=== PATIENT | male | born 1975 | race African-American/Black ===

== ENCOUNTER 2022-05-13 15:50 | Inpatient (IN) | payer MEDICARE, MEDICAID, SELFPAY ==
--- NOTE | 2022-05-13 | ECG_ITS ---
Measurements Intervals [place] Rate: 98 P: 66 HI: 176 QRS: 53 QRSD: 77 T: 57 QT: 337 QTc: 430 Interpretive Statements SINUS RHYTHM EARLY REPOLARIZATION [ST ELEVATION WITH NORMALLY INFLECTED T WAVE] NO PREVIOUS ECG AVAILABLE FOR COMPARISON Electronically Signed On 05-14-2022 17:47:27 ELECTROCARDIOGRAPHIC TECHNICIAN by Brigitte Monzon M.D.
--- NOTE | ~2022-05-13 | XR_ITS ---
XR chest 1V portable DATE: 05/13/2022 16:58 INDICATION: Transient alteration of awareness TECHNIQUE: Portable upright AP chest on 05/13/2022 at 1656 hours COMPARISON: None FINDINGS: Normal heart size. No hilar or mediastinal enlargement. No pulmonary infiltrate or consolid ation, pleural effusion or pulmonary vascular congestion or pneumothorax. IMPRESSION: No active cardiopulmonary disease Reviewed, dictated and finalized at location [facility] [employer]
--- NOTE | ~2022-05-13 | CT_ITS ---
Non-contrast Head CT History: Altered mental status Technique: Axial non-contrast imaging of the brain was performed. Dose reduction technique was used on this scan by utilizing automated exposure control and iterative reconstruction technique. The dose -length product (DLP) was 605.33 mGy-cm. Findings: There is no evidence of intracranial hemorrhage, mass lesion, or acute infarct. Brain par enchyma appears normal. The ventricles and subarachnoid spaces are normal in size. The calvarium ap pears normal. The visualized paranasal sinuses and mastoid air cells are clear. Impression: No significant abnormality seen. Reviewed, dictated and finalized at location . ER ON Impression: No significant abnormality seen.
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
[2022-05-13 15:59] VITALS: PULSE 100; RESP 14; TEMP 36.9; O2SAT 98
[2022-05-13] MEDS: diphenhydrAMINE HCl INJ 50 MG/ML VIAL 25 MG IM (16:00)
[2022-05-13] MEDS: HALOPERIDOL LACTATE 5 MG/ML VIAL IM (16:01)
[2022-05-13] MEDS: LORazepam INJ (*CRX) 2 MG/ML VIAL IM (16:01)
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
[2022-05-13 17:14] VITALS: BP 105/79; PULSE 74; RESP 12; TEMP 36.9; O2SAT 98
[2022-05-13 17:15] LABS: Basophils Absolute Auto 0.1 K/mm3 (0.0-0.1); Basophils Percent Auto 0.6 % (0.2-1.2); Eosinophils Percent Auto 0.5 % (0-4.4); Hematocrit 38.5 % (42.0-52.0); Hemoglobin 12.3 g/dL (14.0-18.0); Immature Granulocyte Absolute 0.03 K/mm3 (0.00-0.031); Immature Granulocyte Percent A 0.3 % (0-0.5); Lymphocytes Absolute Auto 1.38 K/mm3 (0.9-3.2); Lymphocytes Percent Auto 15.8 % (18.3-44.2); Mean Corpuscular HGB Conc 31.9 g/dl (32-36); Mean Corpuscular Hemoglobin 27.5 pg (26-34); Mean Corpuscular Volume 86.1 fl (80-100); Mean Platelet Volume 8.9 fl (7.4-10.4); Monocytes Absolute Auto 0.8 K/mm3 (0.1-0.6); Monocytes Percent Auto 8.7 % (2.6-8.5); Neutrophils Absolute Auto 6.5 K/mm3 (1.3-6.7); Neutrophils Percent Auto 74.1 % (45.5-73.1); Platelet Count Result 366 k/mm3 (150-375); Red Blood Count 4.47 M/mm3 (4.6-6.20); Red Cell Distribution Width 13.8 % (11.5-14.5); White Blood Count 8.7 K/mm3 (4.5-10.0)
[2022-05-13 17:25] LABS: Acetaminophen < 10 ug/mL (10-30); Ethanol < 10 mg/dL (<10); Salicylate < 1.0 mg/dL (2-20)
[2022-05-13 17:33] LABS: Alanine Aminotransferase 32 U/L (6-50); Albumin Level 4.4 g/dL (3.5-5.1); Alkaline Phosphatase 64 U/L (38-126); Anion Gap 7 mmol/L (8-16); Aspartate Amino Transferase 61 U/L (17-59); Bilirubin,Total 0.9 mg/dL (0.2-1.3); Blood Urea Nitrogen 20 mg/dL (9-20); Calcium 8.8 mg/dL (8.4-10.2); Carbon Dioxide 25 mmol/L (22-30); Chloride 107 mmol/L (98-107); Estimated CRCL calculation 55 ml/min; Estimated Glomerular Filt Rate > 60; Glucose 76 mg/dL (65-110); Potassium 3.6 mmol/L (3.4-5.0); Sodium 139 mmol/L (137-145)
[2022-05-13 17:53] LABS: Influenza A QL RT-PCR Negative (Negative); Influenza B QL RT-PCR Negative (Negative); RSV RNA, RT-PCR Negative (Negative); SARS-CoV-2 RNA PCR Negative
[2022-05-13 17:54] LABS: Add Urine Microscopic? YES; Appearance Urine Clear (Clear); Bilirubin Urine 1+ (Negative); Blood Urine 1+ (Negative); Color Urine Yellow (Yellow); Glucose Urine UA Negative (Negative); Ketones Urine 2+ mg/dL (Negative); Leukocyte Esterase Ur Negative LEU/UL (Negative); Nitrate Urine Negative (Negative); Protein Urine 1+ mg/dL (Negative); Specific Grav Ur >= 1.030 (1.001-1.035); Urobilinogen Urine 0.2 mg/dL (<2.0); pH Urine 5.5 (5.0-9.0)
[2022-05-13 18:01] LABS: Mucus Urine Few /lpf; RBC Urine 21-50 /hpf (0-2); Squamous Epithelial Cell Urine Rare /hpf (Few); WBC Urine 0-3 /hpf
[2022-05-13 18:18] LABS: Amphetamine Screen Urine Negative (Negative); Barbiturate Screen Urine Negative (Negative); Benzodiazepines Screen Urine Negative (Negative); Cannabinoid Screen Urine Positive (Negative); Cocaine Screen Urine Negative (Negative); Methadone Screen Urine Negative (Negative); Opiate Screen Urine Negative (Negative); Phencyclidine Screen Urine Negative (Negative)
[2022-05-14] MEDS: HALOPERIDOL LACTATE 5 MG/ML VIAL IM (05:34)
--- NOTE | 2022-05-14 05:39 | PC.NURSE ---
THIS RN LEFT A VM WITH [facility] AT THIS TIME. [phone]. PT WAS SUPPOSEDLY D/C FROM [facility] IN SEPTEMBER 2021 AND SENT TO THAT [facility] AT THAT TIME. ANY INFORMATION THAT WE WOULD BE ABLE TO OBTAIN WOULD BE HELPFUL.
--- NOTE | 2022-05-14 05:57 | PC.NURSE ---
Pt was [facility] voluntary psychiatric admission uniles Sinha of [facility] in [facility].
[2022-05-14 06:00] LABS: Creatine Kinase 2416 U/L (55-170)
[2022-05-14 06:27] LABS: Troponin I < 0.012 ng/mL (0.000-0.034)
--- NOTE | 2022-05-14 07:07 | PC.NURSE ---
reported elevated CK reported. Pt will be admitted.
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
[2022-05-14] MEDS: LACTATED RINGERS 1,000 ML 999 ML IV CONT ×2 (08:58)
--- NOTE | 2022-05-14 09:00 | PC.NURSE ---
MARTIR BETANCOURT WAS ABLE TO HAVE PT ALLOW HER TO INITIATE THE IVF. PT WAS ENCOURAGED TO KEEP HIS ARM STRAIGHT.
--- NOTE | 2022-05-14 11:47 | PC.NURSE ---
Lunch tray ordered for patient
[2022-05-14 15:40] LABS: Creatine Kinase 2214 U/L (55-170)
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
[2022-05-14] MEDS: SODIUM CHLORIDE 0.9% IV 1,000 ML 250 ML IV CONT ×2 (16:50→18:19)
--- NOTE | 2022-05-14 17:06 | PC.NURSE ---
Patient resting at this time. Breathing even and non labored.
[2022-05-15] VITALS (8 sets, daily range): BP systolic 104–122; BP diastolic 54–76; PULSE 60–74; RESP 14–18; TEMP 36.4–37.3; O2SAT 99–100
--- NOTE | 2022-05-15 00:56 | PC.NURSE ---
Pt has remained asleep. He is easily awakened with verbal stimuli. He has no complaints at this time.
[2022-05-15] MEDS: SODIUM CHLORIDE 0.9% IV 1,000 ML 250 ML IV CONT ×4 (04:42→20:49)
[2022-05-15 04:49] LABS: Basophils Percent Auto 0.4 % (0.2-1.2); Eosinophils Absolute Auto 0.2 K/mm3 (0-0.3); Eosinophils Percent Auto 3.1 % (0-4.4); Hematocrit 36.6 % (42.0-52.0); Hemoglobin 11.6 g/dL (14.0-18.0); Immature Granulocyte Absolute 0.01 K/mm3 (0.00-0.031); Immature Granulocyte Percent A 0.2 % (0-0.5); Lymphocytes Absolute Auto 1.58 K/mm3 (0.9-3.2); Lymphocytes Percent Auto 30.2 % (18.3-44.2); Mean Corpuscular HGB Conc 31.7 g/dl (32-36); Mean Corpuscular Hemoglobin 27.5 pg (26-34); Mean Corpuscular Volume 86.7 fl (80-100); Mean Platelet Volume 8.7 fl (7.4-10.4); Monocytes Absolute Auto 0.6 K/mm3 (0.1-0.6); Monocytes Percent Auto 11.3 % (2.6-8.5); Neutrophils Absolute Auto 2.9 K/mm3 (1.3-6.7); Neutrophils Percent Auto 54.8 % (45.5-73.1); Platelet Count Result 326 k/mm3 (150-375); Red Blood Count 4.22 M/mm3 (4.6-6.20); White Blood Count 5.2 K/mm3 (4.5-10.0)
[2022-05-15 05:00] LABS: Lactic Acid Reflex 0.7 mmol/L (0.7-2.0)
[2022-05-15 05:13] LABS: Alanine Aminotransferase 28 U/L (6-50); Albumin Level 2.9 g/dL (3.5-5.1); Alkaline Phosphatase 46 U/L (38-126); Anion Gap 0 mmol/L (8-16); Aspartate Amino Transferase 55 U/L (17-59); Bilirubin,Total 0.5 mg/dL (0.2-1.3); Blood Urea Nitrogen 9 mg/dL (9-20); Calcium 7.6 mg/dL (8.4-10.2); Carbon Dioxide 27 mmol/L (22-30); Chloride 108 mmol/L (98-107); Creatine Kinase 1409 U/L (55-170); Estimated CRCL calculation 84 ml/min; Estimated Glomerular Filt Rate > 60; Glucose 98 mg/dL (65-110); Magnesium 2.1 mg/dL (1.6-2.3); Potassium 3.6 mmol/L (3.4-5.0); Sodium 135 mmol/L (137-145)
--- NOTE | 2022-05-15 07:25 | PC.NURSE ---
Nurse report given to Jostin BETANCOURT
--- NOTE | 2022-05-15 09:29 | PC.NURSE ---
pt refusing Lovenox at this time pt has been calm and cooperative ate breakfast. pt has been asked for urine, will tell staff when bathroom is needed
[2022-05-15] MEDS: OLANZapine DISPERTAB 5 MG PO (12:11)
[2022-05-15] MEDS: LORazepam INJ (*CRX) 2 MG/ML VIAL 0.5 MG IV PUSH (12:31)
--- NOTE | 2022-05-15 13:48 | PC.NURSE ---
1110- Pt picking off telemetry leads and uncooperative with telemetry monitoring.
--- NOTE | 2022-05-15 16:29 | ADMGEN ---
This patient, Dylan Swan, was admitted to Medical Room 245-. Patient/family oriented to hospital policies and general routines including ID bracelet, bed and alarms, visiting hours, pain management, procedures, bathroom and other care routines, personal items, smoking policy, room service/diet, and visiting hours. Information on how to activate the Rapid Response Team has been discussed. Patient/Family are encouraged to report perceived risks to care and to ask questions if they do not understand what they are told or what they should do.
--- NOTE | 2022-05-15 18:12 | PM.IMPN ---
Progress Note: A&P Assessment and Plan (1) Rhabdomyolysis: Code(s): M62.82 - Rhabdomyolysis Status: Acute Assessment and Plan: -continue with IV fluids. Most likely this is related to his aggressive behavior. Check daily BUN and creatinine. Creatinine is 1.4. -check daily creatinine. -check urine myoglobulin (2) Agitation: Code(s): R45.1 - Restlessness and agitation Status: Acute Assessment and Plan: -I did start the patient on routine oral zyprexa -p.r.n. Benadryl -once he is cleared medically then we will need to have replacement for psychiatric condition. Possible paranoid schizophrenia Subjective Date/time seen: 05/15/22 18:12 Patient is feeling much better now. No muscle cramps. No shortness of breath or chest pain. No abdominal pain, nausea, no vomiting.Mood stable. Review of Systems Review of Systems: All systems reviewed & are unremarkable except as noted in HPI and below Constitutional: Constitutional: Reports as per HPI and Reports no additional constitutional complaints Eyes: Eyes: Reports as per HPI and Reports no additional eye complaints ENT: Reports system reviewed and no additional complaints, except as documented and Reports Normal hearing present Cardiovascular: Cardiovascular: Reports no additional cardiovascular complaints Respiratory: Respiratory: Reports no additional respiratory complaints and Reports no additional respiratory complaints Gastrointestinal: Gastrointestinal: Reports as per HPI and Reports no additional gastrointestinal complaints Musculoskeletal: Musculoskeletal: Reports no additional musculoskeletal complaints Integumentary/Breasts: Skin/Breast: Reports system reviewed and no additional complaints, except as docu and Reports as per HPI Neurologic: Reports system reviewed and no additional complaints, except as documented, Reports as per HPI and Reports Normal hearing present Psychiatric: Psychiatric: Reports no additional psychiatric complaints and Reports as per HPI Endocrine: Endocrine: Reports no additional endocrine complaints Hematologic/Lymphatic: Hematologic/Lymphatic: Reports no additional hematologic/lymphatic complaints Allergic/Immunologic: Allergic/Immunologic: Reports no additional allergic/immunologic complaints Exam Const: General: cooperative, healthy appearing, comfortable, no acute distress, well developed, alert, awake, Physically active, average body habitus and well nourished Nutritional Appearance: average body habitus and well nourished Orientation/consciousness: oriented to person, oriented to place, oriented to time and patient oriented x3 Limitations: behavioral limitations HENMT: Head: normal to inspection, No palpable skull fracture present, normocephalic and atraumatic Ears: hearing grossly normal bilaterally and external ears normal Face/Nose/Sinus: Normal external nose present and Normal nares present Eyes: General: appearance normal, both eyes and all related structures Pupils: Equal, round and reactive pupils present Other: The patient would not open his eyes for me. Neck: Neck: normal visual inspection, full ROM, no lymphadenopathy, trachea midline and supple Thyroid: thyroid normal Carotids: normal carotid upstroke Lymphatic: no lymphadenopathy noted Chest: Chest palpation & inspection: normal inspection of the chest Resp: Effort & Inspection: normal respiratory effort Auscultation: clear to auscultation bilaterally Percussion: percussion normal Cardio: Palpation: normal PMI Rate: regular rate Rhythm: regular rhythm Heart sounds: S1 normal heart sound present and S2 normal heart sound present Peripheral pulses: Peripheral pulses 2+ throughout GI: Inspection: normal to inspection Auscultation: normal bowel sounds Rectal Exam: deferred : General: Yes no CVA tenderness Back/Spine/Pelvis: Back: no CVA tenderness Cervical Spine: cervical ROM normal Thoracic/Lumbar Spine: thoracic a
[2022-05-16] VITALS (10 sets, daily range): BP systolic 116–155; BP diastolic 74–99; PULSE 57–82; RESP 16–18; TEMP 36.2–36.8; O2SAT 98–100
[2022-05-16] MEDS: SODIUM CHLORIDE 0.9% IV 1,000 ML 250 ML IV CONT ×5 (00:50→21:58)
[2022-05-16 06:39] LABS: Creatine Kinase 1015 U/L (55-170)
[2022-05-16] MEDS: OLANZapine DISPERTAB 5 MG PO (09:16)
--- NOTE | 2022-05-16 09:47 | PM.IMPN ---
Progress Note: A&P Assessment and Plan (1) Rhabdomyolysis: Code(s): M62.82 - Rhabdomyolysis Status: Acute Assessment and Plan: - mild rhabdomyolysis. May discontinue IV fluids. - Check daily BUN and creatinine. Creatinine is 1.4. -check daily creatinine. -check urine myoglobulin (2) Agitation: Code(s): R45.1 - Restlessness and agitation Status: Acute Assessment and Plan: Patient was started on oral zyprexa -p.r.n. Benadryl -once he is cleared medically then we will need to have replacement for psychiatric condition. have 47 this may represent late onset schizophrenia. His symptoms are likely related to paranoid schizophrenia Plan discharge planning psychiatry evaluation transfer to mental institution. Time Spent With Patient Time with patient: 15 - 25 minutes Subjective Date/time seen: 05/16/22 09:47 Interval history: S: Patient was seen examined at the bedside. He denied any complaints. He did not appear to be in any distress. Patient is uttering a few incoherent words. Review of Systems Review of Systems: All systems reviewed & are unremarkable except as noted in HPI and below Constitutional: Constitutional: Reports as per HPI and Reports no additional constitutional complaints Eyes: Eyes: Reports as per HPI and Reports no additional eye complaints ENT: Reports system reviewed and no additional complaints, except as documented and Reports Normal hearing present Cardiovascular: Cardiovascular: Reports no additional cardiovascular complaints Respiratory: Respiratory: Reports no additional respiratory complaints and Reports no additional respiratory complaints Gastrointestinal: Gastrointestinal: Reports as per HPI and Reports no additional gastrointestinal complaints Musculoskeletal: Musculoskeletal: Reports no additional musculoskeletal complaints Integumentary/Breasts: Skin/Breast: Reports system reviewed and no additional complaints, except as docu and Reports as per HPI Neurologic: Reports system reviewed and no additional complaints, except as documented, Reports as per HPI and Reports Normal hearing present Psychiatric: Psychiatric: Reports no additional psychiatric complaints and Reports as per HPI Endocrine: Endocrine: Reports no additional endocrine complaints Hematologic/Lymphatic: Hematologic/Lymphatic: Reports no additional hematologic/lymphatic complaints Allergic/Immunologic: Allergic/Immunologic: Reports no additional allergic/immunologic complaints Exam Const: General: cooperative, healthy appearing, comfortable, no acute distress, well developed, alert, awake, Physically active, average body habitus and well nourished Nutritional Appearance: average body habitus and well nourished Orientation/consciousness: oriented to person, oriented to place, oriented to time and patient oriented x3 Limitations: behavioral limitations HENMT: Head: normal to inspection, No palpable skull fracture present, normocephalic and atraumatic Ears: hearing grossly normal bilaterally and external ears normal Face/Nose/Sinus: Normal external nose present and Normal nares present Eyes: General: appearance normal, both eyes and all related structures Pupils: Equal, round and reactive pupils present Other: The patient would not open his eyes for me. Neck: Neck: normal visual inspection, full ROM, no lymphadenopathy, trachea midline and supple Thyroid: thyroid normal Carotids: normal carotid upstroke Lymphatic: no lymphadenopathy noted Chest: Chest palpation & inspection: normal inspection of the chest Resp: Effort & Inspection: normal respiratory effort Auscultation: clear to auscultation bilaterally Percussion: percussion normal Cardio: Palpation: normal PMI Rate: regular rate Rhythm: regular rhythm Heart sounds: S1 normal heart sound present and S2 normal heart sound present Peripheral pulses: Peripheral pulses 2+ throughout GI: Inspection: normal to in
[2022-05-16] MEDS: LORazepam INJ (*CRX) 2 MG/ML VIAL 0.5 MG IV PUSH (12:38)
[2022-05-17] MEDS: SODIUM CHLORIDE 0.9% IV 1,000 ML 250 ML IV CONT ×5 (02:45→22:00)
[2022-05-17 05:59] VITALS: BP 113/87; PULSE 58; RESP 20; TEMP 36.4; O2SAT 100
[2022-05-17] MEDS: OLANZapine DISPERTAB 5 MG PO (08:01)
[2022-05-17 09:09] VITALS: O2SAT 98
--- NOTE | 2022-05-17 09:29 | PM.IMPN ---
Progress Note: A&P Assessment and Plan (1) Rhabdomyolysis: Code(s): M62.82 - Rhabdomyolysis Status: Acute Assessment and Plan: - mild rhabdomyolysis. May discontinue IV fluids. - Encourage oral fluid intake. Drusen water bottles at the bedside. - Check daily BUN and creatinine. Creatinine is 1.4. -check daily creatinine. -check urine myoglobulin (2) Agitation: Code(s): R45.1 - Restlessness and agitation Status: Acute Assessment and Plan: Patient was started on oral zyprexa -p.r.n. Benadryl -once he is cleared medically then we will need to have replacement for psychiatric condition. At 47 this may represent onset schizophrenia. His symptoms are likely related to paranoid schizophrenia Plan discharge planning psychiatry evaluation transfer to mental institution. Time Spent With Patient Time with patient: 15 - 25 minutes Subjective Date/time seen: 05/17/22 09:29 Interval history: S: Patient was seen examined at the bedside. He denied any complaints. He did not appear to be in any distress. Patient is uttering a few incoherent words And changing channels on the remote control incessantly. Review of Systems Review of Systems: All systems reviewed & are unremarkable except as noted in HPI and below Constitutional: Constitutional: Reports as per HPI and Reports no additional constitutional complaints Eyes: Eyes: Reports as per HPI and Reports no additional eye complaints ENT: Reports system reviewed and no additional complaints, except as documented and Reports Normal hearing present Cardiovascular: Cardiovascular: Reports no additional cardiovascular complaints Respiratory: Respiratory: Reports no additional respiratory complaints and Reports no additional respiratory complaints Gastrointestinal: Gastrointestinal: Reports as per HPI and Reports no additional gastrointestinal complaints Musculoskeletal: Musculoskeletal: Reports no additional musculoskeletal complaints Integumentary/Breasts: Skin/Breast: Reports system reviewed and no additional complaints, except as docu and Reports as per HPI Neurologic: Reports system reviewed and no additional complaints, except as documented, Reports as per HPI and Reports Normal hearing present Psychiatric: Psychiatric: Reports no additional psychiatric complaints and Reports as per HPI Endocrine: Endocrine: Reports no additional endocrine complaints Hematologic/Lymphatic: Hematologic/Lymphatic: Reports no additional hematologic/lymphatic complaints Allergic/Immunologic: Allergic/Immunologic: Reports no additional allergic/immunologic complaints Exam Const: General: cooperative, healthy appearing, comfortable, no acute distress, well developed, alert, awake, Physically active, average body habitus and well nourished Nutritional Appearance: average body habitus and well nourished Orientation/consciousness: oriented to person, oriented to place, oriented to time and patient oriented x3 Limitations: behavioral limitations HENMT: Head: normal to inspection, No palpable skull fracture present, normocephalic and atraumatic Ears: hearing grossly normal bilaterally and external ears normal Face/Nose/Sinus: Normal external nose present and Normal nares present Eyes: General: appearance normal, both eyes and all related structures Pupils: Equal, round and reactive pupils present Other: The patient would not open his eyes for me. Neck: Neck: normal visual inspection, full ROM, no lymphadenopathy, trachea midline and supple Thyroid: thyroid normal Carotids: normal carotid upstroke Lymphatic: no lymphadenopathy noted Chest: Chest palpation & inspection: normal inspection of the chest Resp: Effort & Inspection: normal respiratory effort Auscultation: clear to auscultation bilaterally Percussion: percussion normal Cardio: Palpation: normal PMI Rate: regular rate Rhythm: regular rhythm Heart sounds: S1 normal heart sound p
[2022-05-17 14:00] VITALS: BP 139/78; PULSE 60; RESP 20; TEMP 36.6; O2SAT 100
[2022-05-17 20:18] VITALS: BP 125/57; PULSE 64; RESP 20; TEMP 36.7; O2SAT 99
[2022-05-17] MEDS: LORazepam INJ (*CRX) 2 MG/ML VIAL 0.5 MG IV PUSH (22:01)
[2022-05-18] MEDS: OLANZapine 5 MG TABLET PO (02:18)
[2022-05-18] MEDS: diphenhydrAMINE HCl INJ 50 MG/ML VIAL 25 MG IV PUSH (02:25)
[2022-05-18 05:13] LABS: Hematocrit 36.5 % (42.0-52.0); Hemoglobin 11.7 g/dL (14.0-18.0); Mean Corpuscular HGB Conc 32.1 g/dl (32-36); Mean Corpuscular Hemoglobin 27.3 pg (26-34); Mean Corpuscular Volume 85.3 fl (80-100); Mean Platelet Volume 9.5 fl (7.4-10.4); Platelet Count Result 360 k/mm3 (150-375); Red Blood Count 4.28 M/mm3 (4.6-6.20); Red Cell Distribution Width 13.5 % (11.5-14.5); White Blood Count 4.8 K/mm3 (4.5-10.0)
[2022-05-18] MEDS: SODIUM CHLORIDE 0.9% IV 1,000 ML 250 ML IV CONT ×4 (05:17→21:51)
[2022-05-18 05:27] LABS: Anion Gap 4 mmol/L (8-16); Blood Urea Nitrogen 10 mg/dL (9-20); Calcium 8.2 mg/dL (8.4-10.2); Carbon Dioxide 27 mmol/L (22-30); Chloride 109 mmol/L (98-107); Creatine Kinase 585 U/L (55-170); Estimated CRCL calculation 84 ml/min; Estimated Glomerular Filt Rate > 60; Glucose 82 mg/dL (65-110); Potassium 3.8 mmol/L (3.4-5.0); Sodium 140 mmol/L (137-145)
[2022-05-18 05:45] VITALS: BP 140/73; PULSE 52; RESP 16; TEMP 36.5; O2SAT 100
[2022-05-18] MEDS: OLANZapine DISPERTAB 5 MG PO (09:26)
--- NOTE | 2022-05-18 13:17 | PM.IMPN ---
Progress Note: A&P Assessment and Plan (1) Rhabdomyolysis: Code(s): M62.82 - Rhabdomyolysis Status: Acute Assessment and Plan: - mild rhabdomyolysis. Continue hydration while in the hospital. Patient is medically stable for psych eval (2) Agitation: Code(s): R45.1 - Restlessness and agitation Status: Acute Assessment and Plan: Patient was started on oral zyprexa Medically cleared for psych eval Plan discharge planning psychiatry evaluation transfer to mental institution. Subjective Date/time seen: 05/18/22 13:17 No new complaints Exam Const: General: cooperative, healthy appearing, comfortable, no acute distress, well developed, alert, awake, Physically active, average body habitus and well nourished Nutritional Appearance: average body habitus and well nourished Orientation/consciousness: oriented to person, oriented to place, oriented to time and patient oriented x3 Limitations: behavioral limitations HENMT: Head: normal to inspection, No palpable skull fracture present, normocephalic and atraumatic Ears: hearing grossly normal bilaterally and external ears normal Face/Nose/Sinus: Normal external nose present and Normal nares present Eyes: General: appearance normal, both eyes and all related structures Pupils: Equal, round and reactive pupils present Other: The patient would not open his eyes for me. Neck: Neck: normal visual inspection, full ROM, no lymphadenopathy, trachea midline and supple Thyroid: thyroid normal Carotids: normal carotid upstroke Lymphatic: no lymphadenopathy noted Chest: Chest palpation & inspection: normal inspection of the chest Resp: Effort & Inspection: normal respiratory effort Auscultation: clear to auscultation bilaterally Percussion: percussion normal Cardio: Palpation: normal PMI Rate: regular rate Rhythm: regular rhythm Heart sounds: S1 normal heart sound present and S2 normal heart sound present Peripheral pulses: Peripheral pulses 2+ throughout GI: Inspection: normal to inspection Auscultation: normal bowel sounds Rectal Exam: deferred : General: Yes no CVA tenderness Back/Spine/Pelvis: Back: no CVA tenderness Cervical Spine: cervical ROM normal Thoracic/Lumbar Spine: thoracic and lumbar spine normal to inspection Pelvis: no pain with anterior-posterior compression Skin: General skin exam: normal color Lesions: no lesions Rashes: no rashes Trauma: no lacerations or abrasions Wounds: no wounds Hair: normal Nails: normal Neuro: General: oriented to person, oriented to place, oriented to time and patient oriented x3 Cranial nerves: Yes Equal, round and reactive pupils present and Yes Normal hearing present Cognition (Neuro): normal cognition and abnormal cognition Speech: normal speech Gait exam (Neuro): Normal gait present Motor exam (neuro): 5/5 motor strength present throughout Sensory Exam: normal sensation Other: The patient was talking chief was said he was hearing. Extrem: General: normal to inspection Right upper extremity: normal to inspection and shoulder/upper arm Left upper extremity: normal to inspection and shoulder/upper arm Right lower extremity: normal to inspection Left lower extremity: normal to inspection Psych: Appearance: grossly normal Mental Status: mental status grossly normal Speech and movement: Normal speech and movement present Affect: normal affect Attitude: cooperative Thought process: Normal thought process present and Illogical thought process present Insight: Good insight present (Psych) Judgement: Good judgement present (Psych) Objective Data Vital Signs Vital Signs: Vital Signs - 24 hr 05/17/22 14:00 05/17/22 20:18 05/17/22 20:00 Temperature 97.9 F 98.1 F Pulse Rate 60 64 Respiratory Rate 20 20 Blood Pressure 139/78 125/57 L Pulse Oximetry 100 99 Oxygen Delivery Room Air 05/18/22 05:45 05/18/22 08:00 Temperature 97.7 F Pulse Rate 52 L Respirato
[2022-05-18 14:30] VITALS: BP 160/94; PULSE 61; RESP 16; TEMP 36.6; O2SAT 100
--- NOTE | 2022-05-18 19:47 | PC.NURSE ---
7 PT [facility] FROM [facility] CALLED STATED THEY HAVE NO MALE BEDS TONIGHT AND NO PLANNED DISCHARGES FOR TOMORROW AND WE CAN CALL BACK TOMORROW TO SEE IF THERE IS ANY AVAILABILITY FOR PT AT [facility].
[2022-05-18 20:57] VITALS: BP 141/82; PULSE 55; RESP 20; TEMP 36.8; O2SAT 100
[2022-05-19] MEDS: SODIUM CHLORIDE 0.9% IV 1,000 ML 250 ML IV CONT ×2 (02:18→06:50)
[2022-05-19 04:59] VITALS: BP 144/90; PULSE 61; RESP 20; TEMP 36.5; O2SAT 97
--- NOTE | 2022-05-19 07:37 | PC.NURSE ---
IV beeping and not infusing, went in to room to fix pump, pt shouting to self and acting erratic, when I left room to get a saline flush he slammed the door loudly
[2022-05-19] MEDS: OLANZapine DISPERTAB 5 MG PO (07:47)
--- NOTE | 2022-05-19 09:35 | PC.NURSE ---
pt continues to shout obscenities and act erratic, he just threw breakfast tray across room, he is remaining in his room
--- NOTE | 2022-05-19 13:23 | PM.IMPN ---
Progress Note: A&P Assessment and Plan (1) Rhabdomyolysis: Code(s): M62.82 - Rhabdomyolysis Status: Acute Assessment and Plan: -resolved (2) Agitation: Code(s): R45.1 - Restlessness and agitation Status: Acute Assessment and Plan: Patient was started on oral zyprexa Medically cleared for psych eval Plan discharge planning psychiatry evaluation transfer to mental institution. Subjective Date/time seen: 05/19/22 13:23 Still agitated at times. Patient was throwing his breakfast tray around the room today. Exam Const: General: cooperative, healthy appearing, comfortable, no acute distress, well developed, alert, awake, Physically active, average body habitus and well nourished Nutritional Appearance: average body habitus and well nourished Orientation/consciousness: oriented to person, oriented to place, oriented to time and patient oriented x3 Limitations: behavioral limitations HENMT: Head: normal to inspection, No palpable skull fracture present, normocephalic and atraumatic Ears: hearing grossly normal bilaterally and external ears normal Face/Nose/Sinus: Normal external nose present and Normal nares present Eyes: General: appearance normal, both eyes and all related structures Pupils: Equal, round and reactive pupils present Other: The patient would not open his eyes for me. Neck: Neck: normal visual inspection, full ROM, no lymphadenopathy, trachea midline and supple Thyroid: thyroid normal Carotids: normal carotid upstroke Lymphatic: no lymphadenopathy noted Chest: Chest palpation & inspection: normal inspection of the chest Resp: Effort & Inspection: normal respiratory effort Auscultation: clear to auscultation bilaterally Percussion: percussion normal Cardio: Palpation: normal PMI Rate: regular rate Rhythm: regular rhythm Heart sounds: S1 normal heart sound present and S2 normal heart sound present Peripheral pulses: Peripheral pulses 2+ throughout GI: Inspection: normal to inspection Auscultation: normal bowel sounds Rectal Exam: deferred : General: Yes no CVA tenderness Back/Spine/Pelvis: Back: no CVA tenderness Cervical Spine: cervical ROM normal Thoracic/Lumbar Spine: thoracic and lumbar spine normal to inspection Pelvis: no pain with anterior-posterior compression Skin: General skin exam: normal color Lesions: no lesions Rashes: no rashes Trauma: no lacerations or abrasions Wounds: no wounds Hair: normal Nails: normal Neuro: General: oriented to person, oriented to place, oriented to time and patient oriented x3 Cranial nerves: Yes Equal, round and reactive pupils present and Yes Normal hearing present Cognition (Neuro): normal cognition and abnormal cognition Speech: normal speech Gait exam (Neuro): Normal gait present Motor exam (neuro): 5/5 motor strength present throughout Sensory Exam: normal sensation Other: The patient was talking chief was said he was hearing. Extrem: General: normal to inspection Right upper extremity: normal to inspection and shoulder/upper arm Left upper extremity: normal to inspection and shoulder/upper arm Right lower extremity: normal to inspection Left lower extremity: normal to inspection Psych: Appearance: grossly normal Mental Status: mental status grossly normal Speech and movement: Normal speech and movement present Affect: normal affect Attitude: cooperative Thought process: Normal thought process present and Illogical thought process present Insight: Good insight present (Psych) Judgement: Good judgement present (Psych) Objective Data Vital Signs Vital Signs: Vital Signs - 24 hr 05/18/22 14:30 05/18/22 20:57 05/18/22 20:00 Temperature 97.8 F 98.3 F Pulse Rate 61 55 L Respiratory Rate 16 20 Blood Pressure 160/94 H 141/82 H Pulse Oximetry 100 100 Oxygen Delivery Room Air 05/19/22 04:59 05/19/22 07:45 Temperature 97.7 F Pulse Rate 61 Respiratory Rate 20 Blood Pressur
--- NOTE | 2022-05-19 17:48 | PC.NURSE ---
chart faxed to [facility] per request of Katherine barahona
[2022-05-19 20:35] VITALS: BP 164/95; PULSE 65; RESP 20; TEMP 36.8; O2SAT 100
[2022-05-19 21:35] LABS: EDCOVIDSCREEN Negative (Negative)
--- NOTE | 2022-06-19 18:50 | PM.DS ---
DS: Admitting Diagnosis Discharge Date 05/19/22 Admitting Diagnosis psychiatric issues with exacerbation DS: Discharge Diagnosis Discharge Diagnosis (1) Rhabdomyolysis: Code(s): M62.82 - Rhabdomyolysis Status: Acute Assessment and Plan: -resolved (2) Agitation: Code(s): R45.1 - Restlessness and agitation Status: Acute Assessment and Plan: Patient was started on oral zyprexa Medically cleared for psych eval Plan discharge planning psychiatry evaluation transfer to mental institution. DS: Summary Hospital Course Hospital Course: admitted for psych exacerbation. Patient discharged after stabilization and treatment of rhabdo myolysis. discharged to psych faciliyt for ongoing evaluation Time Spent with Patient Time attestation: Total time spent providing and/or coordinating discharge services: Exam Const: General: cooperative, healthy appearing, comfortable, no acute distress, well developed, alert, awake, Physically active, average body habitus and well nourished Nutritional Appearance: average body habitus and well nourished Orientation/consciousness: oriented to person, oriented to place, oriented to time and patient oriented x3 Limitations: behavioral limitations HENMT: Head: normal to inspection, No palpable skull fracture present, normocephalic and atraumatic Ears: hearing grossly normal bilaterally and external ears normal Face/Nose/Sinus: Normal external nose present and Normal nares present Eyes: General: appearance normal, both eyes and all related structures Pupils: Equal, round and reactive pupils present Other: The patient would not open his eyes for me. Neck: Neck: normal visual inspection, full ROM, no lymphadenopathy, trachea midline and supple Thyroid: thyroid normal Carotids: normal carotid upstroke Lymphatic: no lymphadenopathy noted Chest: Chest palpation & inspection: normal inspection of the chest Resp: Effort & Inspection: normal respiratory effort Auscultation: clear to auscultation bilaterally Percussion: percussion normal Cardio: Palpation: normal PMI Rate: regular rate Rhythm: regular rhythm Heart sounds: S1 normal heart sound present and S2 normal heart sound present Peripheral pulses: Peripheral pulses 2+ throughout GI: Inspection: normal to inspection Auscultation: normal bowel sounds Rectal Exam: deferred : General: Yes no CVA tenderness Back/Spine/Pelvis: Back: no CVA tenderness Cervical Spine: cervical ROM normal Thoracic/Lumbar Spine: thoracic and lumbar spine normal to inspection Pelvis: no pain with anterior-posterior compression Skin: General skin exam: normal color Lesions: no lesions Rashes: no rashes Trauma: no lacerations or abrasions Wounds: no wounds Hair: normal Nails: normal Neuro: General: oriented to person, oriented to place, oriented to time and patient oriented x3 Cranial nerves: Yes Equal, round and reactive pupils present and Yes Normal hearing present Cognition (Neuro): normal cognition and abnormal cognition Speech: normal speech Gait exam (Neuro): Normal gait present Motor exam (neuro): 5/5 motor strength present throughout Sensory Exam: normal sensation Other: The patient was talking chief was said he was hearing. Extrem: General: normal to inspection Right upper extremity: normal to inspection and shoulder/upper arm Left upper extremity: normal to inspection and shoulder/upper arm Right lower extremity: normal to inspection Left lower extremity: normal to inspection Psych: Appearance: grossly normal Mental Status: mental status grossly normal Speech and movement: Normal speech and movement present Affect: normal affect Attitude: cooperative Thought process: Normal thought process present and Illogical thought process present Insight: Good insight present (Psych) Judgement: Good judgement present (Psych) Discharge Plan Discharge Consulting providers: Mick Verdugo ; Leonor Padilla
== END 2022-05-19 22:55 | DRG 885 ==
LOC: ANHED 05-14 12:59 → ANHIMU 05-15 12:38 → ANH2MED 05-15 17:30 → ANHIMU 05-21 11:38
PROVIDERS: Emergency Medicine; Internal Medicine; Nurse Practitioner; Admitting Provider Family Medicine; Emergency Provider Emergency Medicine; Visit Provider Chiropractor
DX: F20.0 Paranoid schizophrenia (principal); M62.82 Rhabdomyolysis; R45.1 Restlessness and agitation; Z20.822 Contact with and (suspected) exposure to COVID-19
CPT/HCPCS: 36415; 70450; 71045; 80048; 80053; 80307; 81001; 82550; 83605; 83735; 84443; 84484; 85025; 85027; 87426; 87637; 93005; 96361; 96372; 99285; A9270; C9803; J1200; J1630; J2060; J7030; J7120